=== PATIENT | male | born 1985 | race American Indian/Alaskan Native ===

== ENCOUNTER 2022-03-10 20:23 | Emergency (ER) | payer SELFPAY ==
[2022-03-10 21:11] LABS: Basophils % (Auto) 0.2 % (0.0-1.8); Eosinophils # (Auto) 0.1 K/mm3 (0.0-0.4); Eosinophils % (Auto) 1.5 % (0.0-4.3); Hematocrit 44.8 % (35.5-45.6); Hemoglobin 14.7 gm/dl (11.8-15.2); Lymphocytes # (Auto) 0.7 K/mm3 (1.2-5.4); Lymphocytes % (Auto) 12.2 % (13.4-35.0); Mean Corpuscular HGB Conc 33 % (32-34); Mean Corpuscular Volume 88 fl (84-94); Monocytes # (Auto) 0.4 K/mm3 (0.0-0.8); Monocytes % (Auto) 7.1 % (0.0-7.3); Platelet Count 273 K/mm3 (140-440); Red Blood Count 5.11 M/mm3 (3.65-5.03); Red Cell Distribution Width 14.2 % (13.2-15.2)
[2022-03-10 21:30] LABS: Alanine Aminotransferase 11 units/L (7-56); BUN/Creatinine Ratio 12; Blood Urea Nitrogen 11 mg/dL (9-20); Calcium 9.7 mg/dL (8.4-10.2); Hemolysis Index 5
[2022-03-10 22:31] LABS: Bilirubin,Urine NEG (Negative); Blood,Urine NEG (Negative); Color,Urine Yellow (Yellow); Mucus,Urine 2+ /HPF; Protein,Urine <15 mg/dL mg/dL (Negative); WBC,Urine < 1.0 /HPF (0.0-6.0)
[2022-03-10] MEDS ORDERED: SODIUM CHLORIDE 0.9% 1000 ML 1,000 ML IV ONE (22:37)
[2022-03-10] MEDS ORDERED: ONDANSETRON 4 MG/2 ML INJ IV ONE (22:37)
--- NOTE | 2022-03-10 23:02 | XRay Report ---
ABDOMEN 1 VIEW INDICATION / CLINICAL INFORMATION: Specified abdominal pain. Vomiting and diarrhea since yesterday. COMPARISON: None available. FINDINGS: TUBES / LINES: None. BOWEL GAS PATTERN: No significant abnormality. FREE AIR / EXTRALUMINAL GAS: None seen. ADDITIONAL FINDINGS: No significant additional findings. IMPRESSION: 1. No significant abnormality. Signer Name: Jaime Kennedy MD Signed: 03/10/2022 10:58 PM Workstation Name: [id number]
--- NOTE | 2022-03-10 23:37 | Emergency Department Report ---
ED N/V/D HPI - General Chief complaint: Nausea/Vomiting/Diarrhea Stated complaint: ABD PAIN Time Seen by Provider: 03/10/22 22:36 Source: patient Mode of arrival: Ambulatory Limitations: No Limitations - History of Present Illness Initial comments: Patient 36-year-old male who presents with nausea vomiting diarrhea with abdominal cramping x2 days. Patient states unable to tolerate p.o. intake for 2 days. Denies suspicious food. There is been no fevers no chills. Patient denies medical history no Crohn's no diverticulitis no GERD. Patient smokes occasionally patient denies EtOH denies other substance. Is been no fever or chills. There is no shortness of breath no wheezing or stridor. Patient denies suspicious contacts patient has not COVID vaccinated MD complaint: nausea, vomiting, diarrhea, abdominal pain - Related Data Previous Rx's Medication Instructions Recorded Last Taken Type HYDROcodone/APAP 5-325 [Victoria 1 each PO Q6HR PRN #20 tablet 06/20/14 Unknown Rx 5/325] Dicyclomine [Bentyl] 10 mg PO QID PRN #15 capsule 03/10/22 Unknown Rx Ondansetron [Zofran Odt] 4 mg PO Q8HR PRN #12 tab.rapdis 03/10/22 Unknown Rx Allergies Allergy/AdvReac Type Severity Reaction Status Date / Time No Known Allergies Allergy Unverified 06/20/14 14:53 ED Review of Systems ROS: Stated complaint: ABD PAIN Other details as noted in HPI Constitutional: denies: chills, fever Eyes: denies: eye pain, eye discharge, vision change ENT: denies: ear pain, throat pain Respiratory: denies: cough, shortness of breath, wheezing Cardiovascular: as per HPI Endocrine: no symptoms reported Gastrointestinal: abdominal pain, nausea, vomiting, diarrhea. denies: constipation, melena, hematochezia Genitourinary: denies: urgency, dysuria, frequency, hematuria, discharge Musculoskeletal: denies: back pain, joint swelling, arthralgia Skin: denies: rash, lesions Neurological: denies: headache, weakness, paresthesias, vertigo Psychiatric: denies: anxiety, depression Hematological/Lymphatic: denies: easy bleeding, easy bruising ED Past Medical Hx - Past Medical History Hx Headaches / Migraines: Yes Hx Kidney Stones: Yes - Social History Smoking Status: Never Smoker Substance Use Type: Alcohol - Medications Home Medications: Home Medications Medication Instructions Recorded Confirmed Last Taken Type HYDROcodone/APAP 5-325 [Victoria 1 each PO Q6HR PRN #20 tablet 06/20/14 Unknown Rx 5/325] Dicyclomine [Bentyl] 10 mg PO QID PRN #15 capsule 03/10/22 Unknown Rx Ondansetron [Zofran Odt] 4 mg PO Q8HR PRN #12 tab.rapdis 03/10/22 Unknown Rx ED Physical Exam - General Limitations: No Limitations General appearance: alert, in no apparent distress - Head Head exam: Present: atraumatic, normocephalic - Eye Eye exam: Present: normal appearance, EOMI Pupils: Present: normal accommodation - ENT ENT exam: Present: mucous membranes moist - Neck Neck exam: Present: normal inspection, full ROM. Absent: tenderness - Respiratory Respiratory exam: Present: normal lung sounds bilaterally. Absent: respiratory distress, wheezes, rales, rhonchi, stridor, chest wall tenderness - Cardiovascular Cardiovascular Exam: Present: regular rate, normal rhythm, normal heart sounds. Absent: systolic murmur, diastolic murmur, rubs, gallop - GI/Abdominal GI/Abdominal exam: Present: soft, normal bowel sounds. Absent: distended, tenderness, guarding, rebound, rigid, bruit, hernia - Rectal Rectal exam: Present: deferred - Extremities Exam Extremities exam: Present: normal inspection, normal capillary refill. Absent: full ROM, tenderness - Back Exam Back exam: Present: normal inspection, full ROM. Absent: CVA tenderness (R), CVA tenderness (L) - Neurological Exam Neurological exam: Present: alert, oriented X3, CN II-XII intact, normal gait - Psychiatric Psychiatric exam: Present: normal affect, normal mood - Skin Skin exam: Present: warm ED Course Vital Signs 03/10/22 20:33 Temperature 98.6 F Pulse Rate 78 Respiratory 18 Rate Blood Pressure 111/68 O2 Sat by Pulse 97 Oximetry ED Medical Decision Making - Lab Data Result diagrams: 03/10/22 20:55 03/10/22 20:55 - Radiology Data Radiology results: report reviewed, image reviewed ABDOMEN 1 VIEW INDICATION / CLINICAL INFORMATION: Specified abdominal pain. Vomiting and diarrhea since yesterday. COMPARISON: None available. FINDINGS: TUBES / LINES: None. BOWEL GAS PATTERN: No significant abnormality. FREE AIR / EXTRALUMINAL GAS: None seen. ADDITIONAL FINDINGS: No significant additional findings. IMPRESSION: 1. No significant abnormality. Signer Name: Jaime Kennedy MD Signed: 03/10/2022 10:58 PM Workstation Name: [id number] Transcribed By: BRITANY Dictated By: Jaime Kennedy MD Electronically Authenticated By: Jaime Kennedy MD Signed Date/Time: 03/10/222257 DD/ 56 TD/TT: - Medical Decision Making KUB is normal, labs are normal patient now tolerating p.o. intake without nausea vomiting plan DC to home with prescriptions. Patient will continue to hydrate. Follow-up with doctor in 2 to 3 days. Return to emergency department should symptoms worsen. Patient verbalized agreement and understanding with discharge plan. Patient will be DC'd to home in stable condition at this time. Critical care attestation.: If time is entered above; I have spent that time in minutes in the direct care of this critically ill patient, excluding procedure time. ED Disposition Clinical Impression: Abdominal pain Qualifiers: Abdominal location: generalized Qualified Code(s): R10.84 - Generalized abdominal pain Nausea and vomiting Qualifiers: Vomiting type: unspecified Qualified Code(s): R11.2 - Nausea with vomiting, unspecified Disposition: 01 HOME / SELF CARE / HOMELESS Is pt being admited?: No Does the pt Need Aspirin: No Condition: Stable Instructions: Nausea and Vomiting, Adult, Abdominal Pain, Adult, Rehydration, Adult Additional Instructions: Take medications as prescribed, continue to hydrate as directed. Follow-up with your doctor in 2 to 3 days. Return to emergency department should symptoms worsen. Prescriptions: Dicyclomine [Bentyl] 10 mg PO QID PRN #15 capsule PRN Reason: abdominal spasm Ondansetron [Zofran Odt] 4 mg PO Q8HR PRN #12 tab.rapdis PRN Reason: Nausea And Vomiting Referrals: ROSENDA SAUCEDO MD [Primary Care Provider] - 3-5 Days Forms: Work/School Release Form(ED) Time of Disposition: 00:00
[2022-03-11 00:26] VITALS: BP 110/70
== END 2022-03-11 00:26 | disposition home or self-care (01) ==
LOC: ED 20:23
DX: R11.2 Nausea with vomiting, unspecified (principal); R10.84 Generalized abdominal pain; G43.909 Migraine, unspecified, not intractable, without status migrainosus; Z72.89 Other problems related to lifestyle; Z79.899 Other long term (current) drug therapy
CPT/HCPCS: 36415; 74018; 80053; 81001; 85025; 96361; 96374; 99284; J2405; J7030

== ENCOUNTER 2022-06-24 19:32 | Emergency (ER) | payer SELFPAY ==
[2022-06-25] MEDS ORDERED: CLINDAMYCIN 150 MG CAP PO ONE (00:54)
[2022-06-25] MEDS ORDERED: IBUPROFEN 600 MG TAB PO ONE (00:54)
[2022-06-25] MEDS ORDERED: ACETAMINOPHEN 500 MG TAB PO ONE (00:55)
--- NOTE | 2022-06-25 01:12 | Emergency Department Report ---
ED General Adult HPI - General Chief complaint: Skin/Abscess/Foreign Body Stated complaint: RT SIDE OF FACE SWOLLEN Source: patient Mode of arrival: Ambulatory Limitations: No Limitations - History of Present Illness Initial comments: Patient is a 37-year-old -F[place] male with a history of seizures and migraine headaches who presents to the ED with complaint of acute onset persistent painful swollen mild erythematous maculopapular rash on right parotid area after shaving his lafleur about 2 weeks ago. Patient states that the pain has been constant and persistent and that the pain is worse whenever he tries to eat or masticate. Patient denies headache, dizziness, syncope, hearing loss, chest pain or shortness of breath, dysphagia, dysphonia, traumatic injury or neck pain, nausea and vomiting. MD Complaint: RIGHT FACIAL SWELLING AND PAIN -: Gradual, days(s) (2) Location: face (Right parotid area) Radiation: non-radiation Severity scale (0 -10): 7 Quality: aching, sharp Consistency: constant Improves with: none Worsens with: none Associated Symptoms: denies other symptoms, rash (swollen painful right parotid rash). denies: confusion, chest pain, cough, diaphoresis, fever/chills, headaches, loss of appetite, malaise, seizure, shortness of breath, syncope, weakness Treatments Prior to Arrival: none - Related Data Previous Rx's Medication Instructions Recorded Last Taken Type HYDROcodone/APAP 5-325 [Doss 1 each PO Q6HR PRN #20 tablet 06/20/14 Unknown Rx 5/325] Dicyclomine [Bentyl] 10 mg PO QID PRN #15 capsule 03/10/22 Unknown Rx Ondansetron [Zofran Odt] 4 mg PO Q8HR PRN #12 tab.rapdis 03/10/22 Unknown Rx Clindamycin [Clindamycin CAP] 300 mg PO Q8H #30 cap 06/25/22 Unknown Rx Ibuprofen [Motrin] 600 mg PO Q8H PRN #30 tablet 06/25/22 Unknown Rx Sulfamethoxazole/Trimethoprim 1 each PO Q12H #20 tab 06/25/22 Unknown Rx [Bactrim DS TAB] Allergies Allergy/AdvReac Type Severity Reaction Status Date / Time No Known Allergies Allergy Unverified 06/20/14 14:53 ED Review of Systems ROS: Stated complaint: RT SIDE OF FACE SWOLLEN Other details as noted in HPI Constitutional: denies: chills, fever Eyes: denies: eye pain, eye discharge, vision change ENT: other (painful swollen rash on right parotid area). denies: ear pain, throat pain Respiratory: denies: cough, shortness of breath, wheezing Cardiovascular: denies: chest pain, palpitations Endocrine: no symptoms reported Gastrointestinal: denies: abdominal pain, nausea, vomiting, diarrhea Genitourinary: denies: urgency, dysuria Musculoskeletal: denies: back pain, joint swelling, arthralgia, myalgia Skin: rash (Swollen, painful right parotid area; mild erythematous rash on right parotid area), change in color. denies: lesions, change in hair/nails, pruritus Neurological: denies: headache, weakness, paresthesias Psychiatric: denies: anxiety, depression Hematological/Lymphatic: denies: easy bleeding, easy bruising ED Past Medical Hx - Past Medical History Hx Headaches / Migraines: Yes Hx Kidney Stones: Yes - Social History Smoking Status: Never Smoker Substance Use Type: Alcohol - Medications Home Medications: Home Medications Medication Instructions Recorded Confirmed Last Taken Type HYDROcodone/APAP 5-325 [Doss 1 each PO Q6HR PRN #20 tablet 06/20/14 Unknown Rx 5/325] Dicyclomine [Bentyl] 10 mg PO QID PRN #15 capsule 03/10/22 Unknown Rx Ondansetron [Zofran Odt] 4 mg PO Q8HR PRN #12 tab.rapdis 03/10/22 Unknown Rx Clindamycin [Clindamycin CAP] 300 mg PO Q8H #30 cap 06/25/22 Unknown Rx Ibuprofen [Motrin] 600 mg PO Q8H PRN #30 tablet 06/25/22 Unknown Rx Sulfamethoxazole/Trimethoprim 1 each PO Q12H #20 tab 06/25/22 Unknown Rx [Bactrim DS TAB] ED Physical Exam - General Limitations: No Limitations General appearance: alert, in no apparent distress - Head Head exam: Present: atraumatic, normocephalic, normal inspection - Eye Eye exam: Present: normal appearance, PERRL, EOMI Pupils: Present: normal accommodation - ENT ENT exam: Present: normal orophraynx, mucous membranes moist, TM's normal bilaterally, normal external ear exam - Neck Neck exam: Present: normal inspection, full ROM, lymphadenopathy (right pre-aur icular / postauricular lymphadenopathy). Absent: tenderness - Respiratory Respiratory exam: Present: normal lung sounds bilaterally. Absent: respiratory distress, wheezes, rales, rhonchi, chest wall tenderness, accessory muscle use, decreased breath sounds, prolonged expiratory - Cardiovascular Cardiovascular Exam: Present: regular rate, normal rhythm, normal heart sounds. Absent: systolic murmur, diastolic murmur, rubs, gallop - GI/Abdominal GI/Abdominal exam: Present: soft, normal bowel sounds. Absent: distended, tenderness, guarding, rebound, hyperactive bowel sounds, hypoactive bowel sounds, organomegaly - Extremities Exam Extremities exam: Present: normal inspection, full ROM, normal capillary refill. Absent: pedal edema, joint swelling, calf tenderness - Back Exam Back exam: Present: normal inspection, full ROM. Absent: tenderness, CVA tenderness (R), CVA tenderness (L), muscle spasm, paraspinal tenderness, vertebral tenderness - Neurological Exam Neurological exam: Present: alert, oriented X3, CN II-XII intact, normal gait, reflexes normal - Psychiatric Psychiatric exam: Present: normal affect, normal mood - Skin Skin exam: Present: warm, dry, intact, rash (Swollen, tender right parotid area due to mild erythematous maculopapular nonfluctuant rash), erythema. Absent: normal color ED Course Vital Signs 06/24/22 19:59 Temperature 98.2 F Pulse Rate 76 Respiratory 18 Rate Blood Pressure 112/62 O2 Sat by Pulse 99 Oximetry ED Medical Decision Making - Medical Decision Making This is a 37-year-old -F[place] male with a history of seizures and migraine headaches who presents to the ED with complaint of acute onset persistent painful swollen mild erythematous maculopapular rash on right parotid area after shaving his lafleur about 2 weeks ago. Patient states that the pain has been constant and persistent and that the pain is worse whenever he tries to eat or masticate. In the ED, patient is alert and oriented x3 and is not in any distress. Patient was treated for pain in the ED and discharged home on pain medications and antibiotics and advised to follow-up with his primary care physician in 7 to 10 days for reevaluation or return to the ED immediately if symptoms get worse. - Differential Diagnosis facial cellulitis; right lymphadenopathy Critical care attestation.: If time is entered above; I have spent that time in minutes in the direct care of this critically ill patient, excluding procedure time. ED Disposition Clinical Impression: Facial cellulitis, Acute folliculitis Disposition: HOME / SELF CARE / HOMELESS Is pt being admited?: No Does the pt Need Aspirin: No Condition: Stable Instructions: Cellulitis, Adult, [id number], Folliculitis Additional Instructions: Take medication with food, drink plenty of fluids, follow-up with your primary care physician in 7 to 10 days for reevaluation. Return to the ED immediately if symptoms get worse. Prescriptions: Sulfamethoxazole/Trimethoprim [Bactrim DS TAB] 1 each PO Q12H #20 tab Clindamycin [Clindamycin CAP] 300 mg PO Q8H #30 cap Ibuprofen [Motrin] 600 mg PO Q8H PRN #30 tablet PRN Reason: Pain Referrals: [facility] [Provider Group] - 7-10 days Forms: Work/School Release Form(ED) Time of Disposition: 01:13 Print Language: [place]
[2022-06-25 01:50] VITALS: BP 122/74
== END 2022-06-25 02:09 | disposition home or self-care (01) ==
LOC: ED 19:32
DX: L03.211 Cellulitis of face (principal); L73.9 Follicular disorder, unspecified; G43.909 Migraine, unspecified, not intractable, without status migrainosus; Z87.442 Personal history of urinary calculi; Z72.89 Other problems related to lifestyle; Z79.899 Other long term (current) drug therapy
CPT/HCPCS: 99282